=== PATIENT | female | born 1940 | race Native Hawaiian/Other Pacific Islander ===

== ENCOUNTER 2017-01-06 09:05 | Outpatient (CLI) | payer OTHER ==
[~2017-01-06 09:05] MED LIST: LISI10TA11 PO; LOFIBRA160 MG OR; METO50TA27 PO
== END 2017-01-06 18:58 | disposition home or self-care (01) ==
LOC: LABW 09:05
PROVIDERS: Nurse Practitioner Adult Health
DX: E78.2 Mixed hyperlipidemia (principal); Z79.899 Other long term (current) drug therapy; Z51.81 Encounter for therapeutic drug level monitoring
CPT/HCPCS: 36415; 80061; 80076

== ENCOUNTER 2017-06-28 09:35 | Outpatient (CLI) | payer OTHER | END 2017-06-28 10:35 | disposition home or self-care (01) | LOC: LABW 09:35 | PROVIDERS: Nurse Practitioner Adult Health | DX: E78.2 Mixed hyperlipidemia (principal); Z79.899 Other long term (current) drug therapy; Z51.81 Encounter for therapeutic drug level monitoring | CPT/HCPCS: 36415; 80061; 80076 ==

== ENCOUNTER 2017-07-12 10:49 | Outpatient (CLI) | payer OTHER | END 2017-07-12 11:50 | disposition home or self-care (01) | LOC: LABW 10:49 | DX: K52.89 Other specified noninfective gastroenteritis and colitis (principal) | CPT/HCPCS: 87015; 87045; 87205; 87324; 87328; 87329; 87449; 87899 ==

== ENCOUNTER 2017-07-23 08:31 | Outpatient (CLI) | payer OTHER | END 2017-07-23 18:54 | disposition home or self-care (01) | LOC: US 08:31 | DX: K52.89 Other specified noninfective gastroenteritis and colitis (principal) ==

== ENCOUNTER 2018-02-14 09:32 | Outpatient (CLI) | payer OTHER | END 2018-02-14 23:33 | disposition home or self-care (01) | LOC: LABW 09:32 | PROVIDERS: Nurse Practitioner Adult Health | DX: E78.2 Mixed hyperlipidemia (principal); Z79.899 Other long term (current) drug therapy; Z51.81 Encounter for therapeutic drug level monitoring | CPT/HCPCS: 36415; 80061; 80076 ==

== ENCOUNTER 2018-12-22 08:51 | Outpatient (CLI) | payer OTHER | END 2018-12-22 22:21 | disposition home or self-care (01) | LOC: LABW 08:51 | PROVIDERS: Nurse Practitioner Adult Health | DX: E78.2 Mixed hyperlipidemia (principal); Z79.899 Other long term (current) drug therapy; I25.10 Atherosclerotic heart disease of native coronary artery without angina pectoris | CPT/HCPCS: 36415; 80061; 80076 ==

== ENCOUNTER 2019-06-27 08:57 | Outpatient (CLI) | payer OTHER ==
[~2019-06-27] VITALS: Ht 157.5 cm; Wt 44.0 kg
== END 2019-06-27 20:57 | disposition home or self-care (01) ==
LOC: NM 08:57
DX: I25.10 Atherosclerotic heart disease of native coronary artery without angina pectoris (principal); I10 Essential (primary) hypertension; E78.49 Other hyperlipidemia
CPT/HCPCS: A9500; J2785

== ENCOUNTER 2019-08-10 09:28 | Outpatient (CLI) | payer OTHER | END 2019-08-10 19:41 | disposition home or self-care (01) | LOC: LABW 09:28 | PROVIDERS: Nurse Practitioner Adult Health | DX: I25.10 Atherosclerotic heart disease of native coronary artery without angina pectoris (principal); E78.2 Mixed hyperlipidemia; Z79.899 Other long term (current) drug therapy | CPT/HCPCS: 36415; 80061; 80076 ==

== ENCOUNTER 2020-01-16 09:37 | Outpatient (CLI) | payer OTHER | END 2020-01-16 19:32 | disposition home or self-care (01) | LOC: LABW 09:37 | PROVIDERS: Nurse Practitioner Adult Health | DX: E78.2 Mixed hyperlipidemia (principal); Z79.899 Other long term (current) drug therapy | CPT/HCPCS: 36415; 80061; 80076 ==

== ENCOUNTER 2020-12-09 08:39 | Outpatient (CLI) | payer OTHER | END 2020-12-09 18:57 | disposition home or self-care (01) | LOC: LABW 08:39 | PROVIDERS: ATTEND Nurse Practitioner Adult Health | DX: I25.10 Atherosclerotic heart disease of native coronary artery without angina pectoris (principal); E78.2 Mixed hyperlipidemia; Z79.899 Other long term (current) drug therapy | CPT/HCPCS: 36415; 80061; 80076 ==

== ENCOUNTER 2021-02-13 11:07 | Outpatient (CLI) | payer OTHER | END 2021-02-13 21:31 | disposition home or self-care (01) | LOC: RAD 11:07 | PROVIDERS: ATTEND Internal Medicine | DX: M25.551 Pain in right hip (principal); W19.XXXA Unspecified fall, initial encounter ==

== ENCOUNTER 2021-03-20 12:42 | Outpatient (CLI) | payer OTHER | END 2021-03-20 20:30 | disposition home or self-care (01) | LOC: RAD 12:42 | PROVIDERS: ATTEND Internal Medicine | DX: Z13.820 Encounter for screening for osteoporosis (principal); N95.8 Other specified menopausal and perimenopausal disorders ==

== ENCOUNTER 2021-04-02 16:18 | Outpatient (CLI) | payer OTHER | END 2021-04-02 21:38 | disposition home or self-care (01) | LOC: RAD 16:18 | PROVIDERS: ATTEND Internal Medicine | DX: R06.02 Shortness of breath (principal) ==

== ENCOUNTER 2021-04-27 13:50 | Emergency (ER) | payer OTHER ==
[~2021-04-27] VITALS: Ht 157.5 cm; Wt 43.5 kg
[2021-04-27 13:54] VITALS: BP 132/41; TEMP 98.3
== END 2021-04-27 15:30 | disposition home or self-care (01) ==
LOC: ED 13:50
DX: S46.811A Strain of other muscles, fascia and tendons at shoulder and upper arm level, right arm, initial encounter (principal); S56.811A Strain of other muscles, fascia and tendons at forearm level, right arm, initial encounter; S51.811A Laceration without foreign body of right forearm, initial encounter; W18.39XA Other fall on same level, initial encounter; Y92.89 Other specified places as the place of occurrence of the external cause
CPT/HCPCS: 96372; 99283; J1885

== ENCOUNTER 2022-06-19 09:17 | Outpatient (CLI) | payer OTHER | END 2022-06-19 19:17 | disposition home or self-care (01) | LOC: LABW 09:17 | PROVIDERS: ATTEND Internal Medicine Critical Care Medicine | DX: R06.02 Shortness of breath (principal); I25.10 Atherosclerotic heart disease of native coronary artery without angina pectoris | CPT/HCPCS: 36415; 80061; 80076 ==

== ENCOUNTER 2022-08-20 09:29 | Outpatient (CLI) | payer OTHER ==
[2022-08-20 09:42] LABS: PLATELET COUNT 279 K/uL (152-353)
== END 2022-08-20 19:08 | disposition home or self-care (01) ==
LOC: LABW 09:29
PROVIDERS: ATTEND Nurse Practitioner
DX: I25.10 Atherosclerotic heart disease of native coronary artery without angina pectoris (principal); J44.9 Chronic obstructive pulmonary disease, unspecified; I10 Essential (primary) hypertension; E55.9 Vitamin D deficiency, unspecified; R53.83 Other fatigue; R41.0 Disorientation, unspecified; R41.3 Other amnesia; E53.8 Deficiency of other specified B group vitamins
CPT/HCPCS: 36415; 80053; 80061; 82306; 82607; 84439; 84443; 85027

== ENCOUNTER 2022-10-18 16:44 | Observation (INO) | payer OTHER ==
[~2022-10-18] VITALS: Ht 157.5 cm; Wt 47.8 kg
[~2022-10-18 16:44] MED LIST changes: -LISI10TA11 PO; +ZESTRIL40 MG PO
[2022-10-18 16:55] VITALS: BP 144/65; TEMP 98.9
[2022-10-18 17:16] LABS: PLATELET COUNT 328 K/uL (152-353)
[2022-10-18 17:26] LABS: POTASSIUM 3.8 mmol/L (3.6-5.2)
[2022-10-18] MEDS ORDERED: AMLODIPINE BESYLATE PO (21:41)
[2022-10-18] MEDS ORDERED: CARV6.25 PO (21:42)
[2022-10-18] MEDS ORDERED: LIPITOR40 MG PO (21:42)
[2022-10-18] MEDS ORDERED: MEMANTINE HYDROC5 MG PO (21:43)
[2022-10-18] MEDS ORDERED: FENOFIBRATE160 MG PO (21:52)
[2022-10-18 23:59] VITALS: BP 149/60; TEMP 98.9; Ht 157.5 cm; Wt 47.8 kg
[2022-10-19] VITALS (7 sets, daily range): BP systolic 132–179; BP diastolic 40–98; TEMP 97.4–98.8
[2022-10-19 05:41] LABS: POTASSIUM 3.7 mmol/L (3.6-5.2)
[2022-10-19 06:27] LABS: PLATELET COUNT 272 K/uL (152-353)
[2022-10-19] MEDS ORDERED: LIPITOR40 MG PO (10:06)
[2022-10-19] MEDS ORDERED: LIPITOR80 MG PO (10:07)
[2022-10-19] MEDS ORDERED: FENOFIBRATE160 MG PO (10:08)
[2022-10-19] MEDS ORDERED: TUSSIN AC PO (10:08)
[2022-10-19] MEDS ORDERED: ZESTRIL40 MG PO (10:09)
[2022-10-20 03:38] VITALS: BP 139/47; TEMP 98.5
[2022-10-20 08:00] VITALS: BP 177/103; TEMP 97.6
[2022-10-20 12:00] VITALS: BP 141/54; TEMP 98.2
[2022-10-20] MEDS ORDERED: ATOR20TA2 PO (13:32)
[2022-10-20] MEDS ORDERED: IPRATROPIUM/ INH (13:34)
[2022-10-20] MEDS ORDERED: PREDNISONE20 MG PO (13:40)
[2022-10-20] MEDS ORDERED: AZIT250T3 PO (13:41)
== END 2022-10-20 13:40 | disposition home or self-care (01) ==
LOC: ED 16:44 → MED/SURG 18:50
PROVIDERS: ADMIT Family Medicine; ATTEND Internal Medicine
DX: J44.1 Chronic obstructive pulmonary disease with (acute) exacerbation (principal); I11.0 Hypertensive heart disease with heart failure; I50.9 Heart failure, unspecified; E78.49 Other hyperlipidemia; F03.90 Unspecified dementia, unspecified severity, without behavioral disturbance, psychotic disturbance, mood disturbance, and anxiety; I25.10 Atherosclerotic heart disease of native coronary artery without angina pectoris; M15.8 Other polyosteoarthritis; Z72.0 Tobacco use
CPT/HCPCS: 36415; 80053; 81000; 83880; 85027; 87040; 87635; 93005; 94664; 94760; 96360; 96361; 96365; 96366; 96367; 96375; 96376; 99220; 99284; G0378; J0456; J0696; J2930; U0003

== ENCOUNTER 2022-10-29 11:52 | Outpatient (CLI) | payer OTHER ==
[~2022-10-29 11:52] MED LIST changes: +AMLODIPINE BESYLATE PO; +ATOR20TA2 PO; +AZIT250T3 PO; +CARV6.25 PO; +FENOFIBRATE160 MG PO; +IPRATROPIUM/ INH; +LIPITOR40 MG PO; +LIPITOR80 MG PO; +MEMANTINE HYDROC5 MG PO; +PREDNISONE20 MG PO; +TUSSIN AC PO
== END 2022-10-29 18:58 | disposition home or self-care (01) ==
LOC: LABW 11:52
PROVIDERS: ATTEND Psychiatry & Neurology Neurology
DX: R41.82 Altered mental status, unspecified (principal)
CPT/HCPCS: 36415; 82607; 82746; 84443; 85652; 86038

== ENCOUNTER 2022-11-02 15:25 | Outpatient (CLI) | payer OTHER | END 2022-11-02 19:00 | disposition home or self-care (01) | LOC: MRI 15:25 | PROVIDERS: ATTEND Psychiatry & Neurology Neurology | DX: R41.82 Altered mental status, unspecified (principal) ==

== ENCOUNTER 2022-11-18 08:58 | Outpatient (CLI) | payer OTHER | END 2022-11-18 19:01 | disposition home or self-care (01) | LOC: CT 08:58 → RESP 10:00 → CT 19:01 | PROVIDERS: ATTEND Nurse Practitioner Adult Health | DX: I69.30 Unspecified sequelae of cerebral infarction (principal); I10 Essential (primary) hypertension ==